=== PATIENT | female | born 1985 | race Caucasian/White ===

== ENCOUNTER 2016-05-13 09:48 | Emergency (ER) | payer OTHER ==
[~2016-05-13] VITALS: Ht 160 cm; Wt 65.5 kg
[~2016-05-13 09:48] MED LIST: NOHOMEMEDS; TRI-SPRINTEC1 EACH PO; buspar
[2016-05-13 10:34] LABS: HEMATOCRIT 33.9 % (36.0-46.0); MCH 26.3 PG (29.0-34.0); MCHC 31.9 G/DL (30.0-36.0); MCV 82.5 FL (83-99); MEAN PLAT.VOLUME 10.1 uM^3 (9.5-12.4); PLATELET COUNT 329 K/uL (156-360); RBC DIS.WIDTH-CV 13.9 % (11.8-14.6); RBC DIS.WIDTH-SD 41.3 % (39-53); RED BLOOD COUNT 4.11 M/uL (3.80-5.20); WHITE BLOOD COUNT 10.5 K/uL (4.1-10.2)
[2016-05-13 10:50] LABS: CHLORIDE 110 mEq/L (99-109); POTASSIUM 3.7 mEq/L (3.7-5.4); SODIUM 140 mEq/L (136-147)
[2016-05-13 10:52] LABS: GLUCOSE 67 mg/dL (70-99)
[2016-05-13 10:53] LABS: ANION GAP 11 MEQ/L (2-14)
[2016-05-13 10:56] LABS: GFR ESTIMATE (CALCULATED) > 59 mL/min/
[2016-05-13 10:57] LABS: UREA NITROGEN (BUN) 4 mg/dL (9-23)
[2016-05-13 10:58] LABS: TROP-I INTERPRETATION NEGATIVE; TROPONIN-I < 0.01 ng/mL (0.0-0.30)
[2016-05-13 13:36] LABS: ADD MIUA? YES; BILIRUBIN NEGATIVE; BLOOD SMALL; COLOR YELLOW ((YELLOW)); GLUCOSE (STRIP) NEGATIVE; KETONES NEGATIVE; LEUKOCYTES LARGE; NITRITE NEGATIVE; PROTEIN (STRIP) NEGATIVE; SPECIFIC GRAVITY 1.006 (1.000-1.030); UROBILINOGEN 0.2 MG/DL (0.2-1.0)
[2016-05-13 14:07] LABS: EPITHELIAL CELLS 1+ /HPF; RED BLOOD CELLS 0-5 /HPF (0-5)
[2016-05-13 14:08] LABS: BACTERIA 1+ /HPF; CASTS NONE SEEN /LPF; CRYSTALS NONE SEEN; MUCUS NONE SEEN /LPF; UCUL ADDED? NO
[2016-05-13] MEDS ORDERED: MACROBID100 MG PO (14:14)
[2016-05-13 14:41] VITALS: BP 111/69
== END 2016-05-13 14:42 | disposition home or self-care (01) ==
LOC: EME 09:48
PROVIDERS: Emergency Medicine
DX: O23.43 Unspecified infection of urinary tract in pregnancy, third trimester (principal); O26.893 Other specified pregnancy related conditions, third trimester; R07.89 Other chest pain; O99.333 Smoking (tobacco) complicating pregnancy, third trimester; Z3A.36 36 weeks gestation of pregnancy; F17.200 Nicotine dependence, unspecified, uncomplicated
CPT/HCPCS: 71020; 80048; 81003; 84484; 85027; 93005; 93970; 99281; 99284

== ENCOUNTER 2016-05-13 14:47 | Outpatient (CLI) | payer OTHER ==
[~2016-05-13] VITALS: Ht 160 cm; Wt 66.5 kg
[~2016-05-13 14:47] MED LIST changes: +MACROBID100 MG PO
[2016-05-13 15:29] VITALS: BP 119/77
[2016-05-13 17:12] VITALS: BP 113/67
[2016-05-13 17:42] LABS: HBSG INDEX 0.16; HIV INDEX 0.05; HIV-1/2 AB/AG COMBO Nonreactive
[2016-05-13 17:52] LABS: Estimated Average Glucose 105 mg/dL (70-123); HEMOGLOBIN A1c (GLYCOHEMOGLOB) 5.3 % HGB (Below 5.7)
[2016-05-13 17:56] LABS: ADD MIUA? YES; BILIRUBIN NEGATIVE; BLOOD SMALL; COLOR YELLOW ((YELLOW)); GLUCOSE (STRIP) NEGATIVE; KETONES 80; LEUKOCYTES LARGE; NITRITE NEGATIVE; PROTEIN (STRIP) NEGATIVE; UROBILINOGEN 0.2 MG/DL (0.2-1.0)
[2016-05-13 18:17] LABS: BACTERIA NONE SEEN /HPF; CASTS NONE SEEN /LPF; CRYSTALS NONE SEEN; EPITHELIAL CELLS 1+ /HPF; MUCUS RARE /LPF; RED BLOOD CELLS 0-5 /HPF (0-5); UCUL ADDED? YES; WHITE BLOOD CELLS TNTC /HPF (0-5)
[2016-05-13 18:39] LABS: AMPHETAMINES QUANT VALUE 0 NG/ML; BARBITUATES QUANT VALUE 0 NG/ML; BENZODIAZEPINES QUANT VALUE 0 NG/ML; BENZODIAZEPINES, URINE SCREEN Negative (200 ng/mL); MARIJUANA QUANT VALUE 0 NG/ML; OPIATES QUANTITATIVE VALUE 0 NG/ML; PHENCYCLIDINE QUANT VALUE 0 NG/ML
[2016-05-13 20:11] VITALS: BP 111/72
[2016-05-13 22:17] LABS: GARDNERELLA DNA PROBE POSITIVE; INTERNAL CONTROL VALID? YES
[2016-05-13 22:18] LABS: CANDIDA DNA PROBE NEGATIVE
[2016-05-14 09:21] LABS: TREPONEMA ANTIBODY NEGATIVE (NEGATIVE)
[2016-05-17 13:56] LABS: CHLAMYDIA TRACHOMATIS INVALID; NEISSERIA GONORRHOEAE INVALID
== END 2016-05-13 21:00 | disposition home or self-care (01) ==
LOC: LDRP-OP 14:47 → 2WEST 14:52
PROVIDERS: Advanced Practice Midwife; Obstetrics & Gynecology Obstetrics
DX: O47.1 False labor at or after 37 completed weeks of gestation (principal); Z3A.36 36 weeks gestation of pregnancy; O09.33 Supervision of pregnancy with insufficient antenatal care, third trimester
CPT/HCPCS: 59025; 76805; 80306 90; 81003; 83036; 86703; 86762; 86780; 86850; 86900; 86901; 87081; 87086; 87340; 87480; 87491; 87510; 87591; 87653; 87660; G0378

== ENCOUNTER 2016-06-07 10:48 | Inpatient (IN) | payer OTHER ==
[~2016-06-07] VITALS: Ht 160 cm; Wt 65.0 kg
[2016-06-07] VITALS (23 sets, daily range): BP systolic 101–140; BP diastolic 61–92
[2016-06-07] MEDS ORDERED: ZOLOFT50 MG PO (11:34)
[2016-06-07 12:45] LABS: EOSINOPHIL (%) 0.8 % (0-5); EOSINOPHIL COUNT 0.1 K/uL (0-0.3); HEMATOCRIT 32.6 % (36.0-46.0); IMMATURE GRANULOCYTE (%) 0.9 % (0.0-0.7); IMMATURE GRANULOCYTE COUNT 0.1 K/uL; LYMPHOCYTE COUNT 1.9 K/uL (1.0-2.8); MCH 25.3 PG (29.0-34.0); MCV 81.7 FL (83-99); MEAN PLAT.VOLUME 10.7 uM^3 (9.5-12.4); MONOCYTE (%) 5.8 % (3-12); MONOCYTE COUNT 0.7 K/uL (0-0.8); NEUTROPHIL (%) 76.6 % (45-76); PLATELET COUNT 316 K/uL (156-360); RBC DIS.WIDTH-SD 44.5 % (39-53); RED BLOOD COUNT 3.99 M/uL (3.80-5.20); WHITE BLOOD COUNT 11.8 K/uL (4.1-10.2)
[2016-06-07 16:03] LABS: AMPHETAMINES QUANT VALUE 0 NG/ML; BARBITUATES QUANT VALUE 0 NG/ML; BENZODIAZEPINES QUANT VALUE 0 NG/ML; BENZODIAZEPINES, URINE SCREEN Negative (200 ng/mL); MARIJUANA QUANT VALUE 0 NG/ML; OPIATES QUANTITATIVE VALUE 0 NG/ML; PHENCYCLIDINE QUANT VALUE 0 NG/ML
[2016-06-07] MEDS ORDERED: IBUPROFEN800 MG PO (18:26)
[2016-06-08 23:02] VITALS: BP 114/73
[2016-06-09 07:49] VITALS: BP 136/85
== END 2016-06-09 11:29 | disposition home or self-care (01) | DRG 775 ==
LOC: LDRP-OP 10:48 → 2WEST 10:49 → LDRP-OP 07-11 21:12
PROVIDERS: Midwife
PROC: 10907ZC Drainage of Amniotic Fluid, Therapeutic from Products of Conception, Via Natural or Artificial Opening (ICD-10-PCS; principal; 2016-06-07)
PROC: 10E0XZZ Delivery of Products of Conception, External Approach (ICD-10-PCS; principal; 2016-06-07)
PROC: 00HU33Z Insertion of Infusion Device into Spinal Canal, Percutaneous Approach (ICD-10-PCS; 2016-06-07)
PROC: 3E0S3CZ (ICD-10-PCS; 2016-06-07)
DX: O70.0 First degree perineal laceration during delivery (principal); F32.9 Major depressive disorder, single episode, unspecified; O99.343 Other mental disorders complicating pregnancy, third trimester; Z3A.39 39 weeks gestation of pregnancy; Z37.0 Single live birth
CPT/HCPCS: 80306 90; 85025; C1755; J1050; J3010; J7120